=== PATIENT | female | born 1940 | race Two or more races ===

== ENCOUNTER 2022-08-13 10:24 | Outpatient (CLI) | payer OTHER | END 2022-08-13 10:37 | disposition home or self-care (01) | LOC: SONOGRAMA 10:24 | PROVIDERS: ATTEND Pathology Anatomic Pathology & Clinical Pathology | DX: E04.2 Nontoxic multinodular goiter (principal); D34 Benign neoplasm of thyroid gland; D44.0 Neoplasm of uncertain behavior of thyroid gland ==

== ENCOUNTER 2025-06-14 09:05 | Outpatient (CLI) | payer OTHER | END 2025-06-14 09:07 | disposition home or self-care (01) | LOC: SONOGRAMA 09:05 | PROVIDERS: ATTEND Pathology Anatomic Pathology & Clinical Pathology | DX: D34 Benign neoplasm of thyroid gland (principal); E07.89 Other specified disorders of thyroid; E04.2 Nontoxic multinodular goiter ==